=== PATIENT | female | born 1955 | race Caucasian/White ===

== ENCOUNTER 2017-01-11 23:45 | Inpatient (IN) ==
--- NOTE | 2017-01-12 00:34 | Hospitalist History & Physical ---
History of Present Illness Chief complaint: suspected intentional drug overdose and acute respiratory failure History of present illness: Ms. Almonte is a 61 year old female who was transferred from [facility] for suspected drug overdose and respiratory compromise requiring intubation with mechanical ventilation. Currently, patient is intubated and sedated. No family member is present. According to EMS personnel and the notes, on yesterday, patient was talking to her family about committing suicide. Later on yesterday, she went to a [employer] restaurant and consumed two margaritas. It was reported that she had a fight with her sister, and the patient took some pills. The amount of pills are unknown. It is also unknown what pills she did take. She had bottles of ambien/ Mirapex/Zoloft. She is prescribed ambien 10mg qhs, mirapex 0.25mg qhs, and zoloft 25mg daily. After patient ingested the pills, the daughter called EMS and according to EMS personnel, patient had slurred speech and kept falling asleep. Her o2 saturation at that time was 90%. She told EMS that she was not trying to hurt herself but if she didnt wake up that would be fine. When she was taken to the ER, she became more hypoxic with o2 sats in the 50s, and she developed shallow breathing with slow breaths. She was intubated in the ER. She was placed on a versed drip. While in route to [place], patient woke up, and she was given 100mcg of fentanyl. Her blood pressure dropped to the 70s. Currently, bp is 97/57. Allergies Allergy/AdvReac Type Severity Reaction Status Date / Time No Known Allergies Allergy Verified 01/12/17 00:33 Medical,Surgical,& Family Hx - Medical History Psychological: History of: Anxiety Disorders, Depression Neurology: History of: Neurological Problems (restless leg syndrome) - Surgical History Abdominal Surgeries: Surgical HX of: Appendectomy - Family History Family History: Reports;: Additional Family History (unknown; patient is intubated and sedated; no family member is present) - Social History Smoking Status: Current every day smoker (2ppd, unknown duration) Frequency of Alcohol Use: Unknown (it was reported that patient had consumed two margaritas) Lives With:: Spouse ROS unobtainable: due to endotracheal tube Exam - Constitutional Vitals: 97/57, 14, 64, 97.1, 96%, vent settings: AC, Tv: 600, rate: 12, FIo2: 50%, PEEP : 5 General appearance: no acute distress (intubated and sedated) - Head Head exam: Present: normal inspection, normocephalic, atraumatic - Eye Eye exam: Absent: conjunctival injection, periorbital swelling, scleral icterus Pupils: Present: RUBY - ENT ENT exam: Present: other (+ET tube) - Neck Neck exam: Present: normal inspection - Respiratory Respiratory exam: Present: prolonged expiratory phase, wheezes, other ( bilateral air movement; no increased work of breathing). Absent: rales ( bilateral breath sounds; no increased work of breathing), rhonchi - Cardiovascular Cardiovascular exam: Present: regular rate and rhythm - GI/Abdominal GI/Abdominal exam: Present: normal bowel sounds, soft. Absent: distended, tenderness - Extremities Exam Extremities exam: Present: normal inspection. Absent: edema - Neurological Exam Neurological exam: Present: other (sedated) - Skin Skin exam: Present: normal color, warm Results - EKG EKG results: sinus rhythm - Impressions Labs from outside facility: 14.1 9.0> <223 40.6 147 108 7 <103 3.7 29 0.8 ABG: ph: 7.36, Paco2: 40, paO2: 238, HCO3: 22, base excess:-3.1; O2 saturation : 98% EKG: NSR with QTc: 485 tylenol level: 23, ETOH level 5, UDS: positive for opiates This is a 61 yo female who was transferred from [facility] to [place] for suspected intentional drug overdose. 1. Suspected intentional drug overdose 2. Suspected suicide attempt 3. Acute respiratory failure requiring intubation with mechanical ventilation 4. Prolonged Qtc, EKG from outside hospital showed NSR with QTc: 485. It is likely due to the Zoloft. Other thoughts include cardiac ischemia or electrolyte imbalances. 5. Recent ETOH use 6. Hypotension, likely from fentanyl but will need to evaluate for possible sepsis 7. DVT and GI prophalaxis 8. Comorbid conditions: history of anxiety, depression, tobacco use Plan: IVFs, cardiac enzymes, basic labs, cxray, EKG now and in am; monitor QTc ; obtain ABG and adjust vent settings accordingly; consult pulmonary for vent management; add bronchodilator therapy; likely will need psychiatry consult; check lactic acid; monitor for signs/symptoms of acute withdrawal; add thiamine/ folic acid/PPI/lovenox. The plan of care may be modified as more information becomes available.
[2017-01-12] MEDS ORDERED: SODIUM CHLORIDE 0.9% 1,000 ML IV ONE ×2 (00:36→03:41)
[2017-01-12 00:59] LABS: Allen Test Positive; Pt O2 Delivery Device Ventilator
[2017-01-12 01:00] LABS: ABG Base Excess -0.8 MMOL/L (-2.5-2.5); ABG HCO3 26.6 MMOL/L (20-26); ABG Oxygen Saturation 94.2 % (95-100); ABG PCO2 55.8 MM HG (35-48); ABG PH 7.296 (7.35-7.45); ABG PO2 77.5 MM HG (80-95); ABG TCO2 28.3 MMOL/L (23-27)
[2017-01-12] MEDS: PROPOFOL 1,000 MG/100 ML BOTTLE IV SCH ×2 (01:15→20:34)
[2017-01-12] MEDS ORDERED: ALBUTEROL 2.5 MG/3 ML NEB RESP TX PRN (01:46)
[2017-01-12 02:09] LABS: Osmolality,Calculated 284.8 MOS/KG (273-304); Potassium 3.7 MMOL/L (3.5-5.1)
[2017-01-12] MEDS: SODIUM CHLORIDE 0.9% 1,000 ML IV SCH ×4 (02:10→16:37)
[2017-01-12 02:12] LABS: Lactic Acid 1.4 MMOL/L (0.4-2.0)
[2017-01-12 02:21] LABS: ABG Oxygen Saturation 95.5 % (95-100); ABG PCO2 47.7 MM HG (35-48); ABG PH 7.355 (7.35-7.45); ABG PO2 81.1 MM HG (80-95); ABG TCO2 27.5 MMOL/L (23-27); Allen Test Positive; Pt O2 Delivery Device Ventilator
[2017-01-12 02:25] LABS: Alanine Aminotransferase 40 U/L (13-56); Albumin 3.2 G/DL (3.4-5.0); Alkaline Phosphatase 103 U/L (45-117); Aspartate Amino Transferase 34 U/L (0-37); Blood Urea Nitrogen 8 MG/DL (7-18); Calcium 8.3 MG/DL (8.5-10.1); Free T4 (Free Thyroxine) 0.87 NG/DL (0.76-1.46); Glucose 103 MG/DL (74-106); Osmolality,Calculated 283.8 MOS/KG (273-304); Potassium 3.7 MMOL/L (3.5-5.1); Sodium 144 MMOL/L (136-145); Total Protein 5.7 G/DL (6.4-8.3); Troponin I Only < 0.015 NG/ML (0.00-0.045)
--- NOTE | 2017-01-12 02:26 | EKG Report ---
Stationary ECG Study [facility] Test Date: 01/12/2017 12:38:14 AM Pat Name: ANA SAGASTUME Department: Room: 129 Gender: F Water Truck Driver: KANU : 1955 Requested by: Sean Cotton Order Number: [id number] Reading MD: SULLY MARTINES Intervals [place] Rate: 63 P: 73 ND: 170 QRS: 60 QRSD: 102 T: 61 QT: 473 QTc: 480 Interpretive Statements SINUS RHYTHM INCOMPLETE RIGHT BUNDLE BRANCH BLOCK MODERATE T-WAVE ABNORMALITY, CONSIDER ANTERIOR ISCHEMIA Electronically Signed On 01-12-17 16:38:45 CDT by SULLY MARTINES [email or web address]
[2017-01-12 02:28] LABS: Basophils % 0.5 % (0.0-0.8); Eosinophils # 0.1 10*3/uL (0.0-0.87); Eosinophils % 1.4 % (0.00-10.9); Eosinophils % 1.5 % (0.00-10.9); Hematocrit 37.4 VOL% (35.7-47.0); Hemoglobin 12.9 GM/DL (12.0-16.0); Hemoglobin 13.1 GM/DL (12.0-16.0); Immature Granulocytes % 0.6 %; Immature Granulocytes Absolute 0.05 #; Lymphocytes # 2.4 10*3/uL (1.4-4.0); Lymphocytes % 28.1 % (21.3-54.2); Lymphocytes % 28.5 % (21.3-54.2); Mean Corpuscular HGB Conc 34.5 GM/DL (32-36); Mean Corpuscular Hemoglobin 31 PG (27-34); Mean Platelet Volume 10.5 FL (9.6-12.0); Mean Platelet Volume 10.8 FL (9.6-12.0); Monocytes # 0.5 10*3/uL (0.11-0.8); Monocytes # 0.6 10*3/uL (0.11-0.8); Monocytes % 6.3 % (1.7-12.7); Monocytes % 6.9 % (1.7-12.7); Neutrophils # 5.3 10*3/uL (1.4-7.4); Neutrophils # 5.4 10*3/uL (1.4-7.4); Neutrophils % 63.1 % (38.7-73.9); Platelet Count 206 T/CUMM (130-400); Platelet Count 212 T/CUMM (130-400); Red Cell Distribution Width 12.6 % (9.3-17.3); White Blood Count 8.5 T/CUMM (4-12)
[2017-01-12] MEDS: ALBUTEROL 2.5 MG/3 ML NEB RESP TX SCH ×5 (02:51→20:29)
--- NOTE | 2017-01-12 07:42 | XRay Report ---
Exam: XR chest 1V portable Date: 01/12/2017 12:36 AM Indication: Shortness of breath follow-up ventilator nasogastric tube placement Comparison: 02/18/2010 Findings:: Endotracheal tube is present at the level aortic knob. Nasogastric tube is present with the distal tip in the fundus of the stomach. The heart is normal in size. Minimal atelectatic change in the basilar regions. Small effusion left base No pneumothorax. External cardiac leads are present. Mediastinum is otherwise intact. Impression: 1. Endotracheal tube and nasogastric tube in good position. 2. Left basilar atelectatic change and tiny effusion PROCEDURE INTERPRETED AT [facility] DEPARTMENT OF RADIOLOGY Final Report Signed by: Dr. Macho Sadler
--- NOTE | 2017-01-12 07:53 | EKG Report ---
Stationary ECG Study [facility] Test Date: 01/12/2017 7:53:48 AM Pat Name: ANA SAGASTUME Department: Room: 129 Gender: F Retail Route Supervisor: : 1955 Requested by: Sean Cotton Order Number: [id number] Reading MD: SULLY MARTINES Intervals [place] Rate: 60 P: 64 PA: 167 QRS: 55 QRSD: 104 T: 59 QT: 476 QTc: 477 Interpretive Statements SINUS RHYTHM INCOMPLETE RIGHT BUNDLE BRANCH BLOCK ST DEVIATION AND MODERATE T-WAVE ABNORMALITY, CONSIDER ANTERIOR ISCHEMIA Electronically Signed On 01-12-17 17:05:06 CDT by SULLY MARTINES [email or web address]
[2017-01-12] MEDS ORDERED: FOLIC ACID 5 MG/1 ML VIAL IV SCH (09:00)
[2017-01-12] MEDS: THIAMINE 200 MG/2 ML VIAL IV SCH (09:34)
[2017-01-12] MEDS: PANTOPRAZOLE 40 MG VIAL IV SCH (09:34)
[2017-01-12] MEDS: ENOXAPARIN 40 MG/0.4 ML SYRINGE SUBCUT SCH (09:35)
[2017-01-12 09:40] LABS: Troponin I Only < 0.015 NG/ML (0.00-0.045)
--- NOTE | 2017-01-12 10:44 | Pulmonology Consult Note ---
History of Present Illness Chief complaint: Mechanical ventilation. Medicine overdose. History of present illness: Ms. 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 Patient also has hypoxemia. This patient had an intentional overdose or overdose gesture. Please see admit note for additional detail. She was transferred here from [facility] emergency room she was intubated on arrival here Patient slightly sedated. She is recently been writing notes to the nurse but she refused to wake up when I came in the room. No one is aware of any evidence of vomiting or aspiration Remainder review of systems is therefore negative. Allergies. None. Home medicines. See below Hospital medicines. See below Past history. I saw this patient after surgery in 2009. She was hypoxic at that time. On FiO2 she had a PO2 of 78. There is a history of anxiety disorders and depression. Social history. 2 pack per day smoker for unknown known number of years. Patient works for [employer]. Family history. None available. Chest x-ray. My interpretation. Slight increase in interstitial markings in the right base. Small left pleural effusion. 7 possible to rule out an associated infiltrate. Lung randolph are otherwise clear with no masses infiltrates or pulmonary edema. No pneumothorax. Endotracheal tube in good position. ABGs on mechanical ventilation FiO2 of 60% shows a pH 7.355. PCO2 47.7. PO2 of 81.1 and a bicarb of 26 Lab. White count is 8500 with 63 segs 28 lymphs and 6 monocytes. H&H is 13.1/ 37.4 with normal indices and normal red blood cell distribution with. Platelets are 206,000 with normal MPV. Electrolytes are normal. Creatinine is 0.70 with a BUN of 10. Glucoses are normal. Lactic acid is 1.4. Calcium is low at 8.0 liver function tests are normal. Total protein and albumin are low at 5.73.2 respectively. Globulins are normal. TSH is slightly elevated at 5.640. Free T4 is in low normal range is 0.87. Toxicology. I will sign a drug screen was positive for opiates Physical exam. Vital signs. See below. Afebrile. Neurologic. Patient will not open her eyes. Recently she has been riding on a note pad to the nurse so there may be some psychological overlay. Other exams have shown the cranial nerves to be intact and the patient moves all fours. Face. Symmetrical. No edema of the lips or tongue. Neck. Symmetrical. No mass. No meningismus. Thyroid was not palpated Lymphatics no submandibular cervical supraclavicular or epitrochlear adenopathy Chest clear no large airway congestion. Heart. No gallop Abdomen. Nondistended. Rare bowel sounds. Extremities. No edema no evidence of deep venous thrombophlebitis Musculoskeletal no gross abnormalities of the cervical thoracic and lumbar spine Skin. Face and hands show no cancerous infectious lesions no other areas were examined Arterial. Carotid pulses normal upper extremity pulses palpable lower extremity pulses are nonpalpable. Venous exam of the neck upper and lower extremities are normal The remainder the physical exam is negative. Impression. 1. Intentional overdose of opioids. 2. Acute respiratory failure related to #1 3. Small left pleural effusion and slight increase right lower lung markings. Suspect a mild degree of aspiration. 4. Hypoxemia. Note that this was present when the patient was on a ventilator in 2009. 5. Tobacco abuse. Reportedly 2 packs of cigarettes per day. Most likely has underlying COPD. 6. Elevated TSH with normal free T4. 7. See past history Plan. 1. Weaning protocol. 2. Sputum for Gram stain culture and sensitivity 3. IV Levaquin 4. IV Cleocin 5. Daily chest x-rays and ABGs. 6. Physical therapy protocol while on mechanical ventilation. 7. Proton pump inhibitor protocol 8. Deep venous thrombophlebitis prevention protocol 9. See orders Allergies Allergy/AdvReac Type Severity Reaction Status Date / Time No Known Allergies Allergy Verified 01/12/17 00:33 Exam (Pulmonay) H&P - Constitutional Vitals: Period Temp Pulse Resp BP Sys/Lau Pulse Ox Last 24 Hr 96.3 F-97.3 F 54-74 12-21 87-149/56-96 92-99 Medical,Surgical,& Family Hx - Medical History Psychological: History of: Anxiety Disorders, Depression Neurology: History of: TIA, Neurological Problems (restless leg syndrome) HEENT: History of: Dental Problems (dentures) - Surgical History Abdominal Surgeries: Surgical HX of: Appendectomy - Family History Family History: Reports;: Family Cancer, Family Hypertension, Additional Family History (unknown; patient is intubated and sedated; no family member is present) Denies;: Family Diabetes, Family Heart Disease, Family Hematology, Family Psychiatric Problems, Family Stroke - Social History Smoking Status: Current every day smoker (2ppd, unknown duration) Frequency of Alcohol Use: Unknown (it was reported that patient had consumed two margaritas) Results - Labs CBC & BMP: 01/12/17 01:43 01/12/17 01:43
[2017-01-12 10:46] LABS: ABG Base Excess -3.3 MMOL/L (-2.5-2.5); ABG HCO3 21.5 MMOL/L (20-26); ABG Oxygen Saturation 89.4 % (95-100); ABG PCO2 67.1 MM HG (35-48); ABG PO2 66.1 MM HG (80-95)
[2017-01-12] MEDS: FOLIC ACID INJ 1 MG in SODIUM CHLORIDE 0.9% 50 ML IV SCH (13:01)
[2017-01-12] MEDS: LEVOFLOXACIN INJ 500 MG in PREMIX 1 EACH IV SCH (14:18)
[2017-01-12] MEDS: CLINDAMYCIN INJ 300 MG in PREMIX 1 EACH IV SCH ×2 (14:18→20:28)
--- NOTE | 2017-01-12 14:20 | Hospitalist Progress Note ---
Assessment and Plan (1) Depression with suicidal ideation Status: Acute Assessment and plan: Attempted overdose with Ambien, other medications Current Visit: Yes (2) Respiratory failure Status: Resolved Assessment and plan: Patient required intubation for airway protection after overdose. Now improved. Plan for extubation. Pulmonary consult appreciated. Current Visit: Yes Qualifiers: Chronicity: acute Respiratory failure complication: hypoxia Qualified Code(s): J96.01 - Acute respiratory failure with hypoxia Hospitalist: Subjective Interval history: Patient seen and examined. No acute events overnight. Case discussed with nursing staff. Labs reviewed. The dipper Van is off, the patient will be extubated shortly. History and physical reviewed. Exam - Constitutional Vitals: Period Temp Pulse Resp BP Sys/Lau Pulse Ox Last 24 Hr 96.3 F-97.3 F 54-77 12-21 87-149/56-96 91-99 Exam: Constitutional System: Mild distress. No tremulousness. Remains intubated with sedation off. In preparation for extubation. Head: Normocephalic, atraumatic. Ears, Nose and Throat System: No pain or tenderness. No epistaxis or discharge Eyes System: Pupils equal, round, and reactive. Extraocular muscles intact. Neck: Supple, without adenopathy, No jugular venous distention. No thyromegaly, neck mass, or prior surgery apparent. Respiratory System: Chest clear to auscultation. Cardiovascular System: Heart with regular rate and rhythm. No murmur. GI System: Abdomen soft, nontender. Normo active bowel sounds present. Musculoskeletal System: limbs with no pedal edema. Full distal pulses. Neurological System: No discernable sensory deficit. Moves all extremities. Follows commands. Psychiatric System: Unable to assess secondary to intubation. Results - Labs CBC & BMP: 01/12/17 01:43 01/12/17 01:43 Lab Results: I have reviewed the past 24 hour labs - Diagnostic Findings Procedure: Chest x-ray: image reviewed by me, report reviewed by me
[2017-01-12 14:46] LABS: Troponin I Only < 0.015 NG/ML (0.00-0.045)
[2017-01-12] MEDS ORDERED: DEXTROSE 50% 25 GM/50 ML VIAL IV PRN (16:21)
[2017-01-12] MEDS ORDERED: GLUCAGON 1 MG VIAL IM PRN (16:21)
--- NOTE | 2017-01-12 16:34 | Event Note ---
In hospital diagnostic and therapeutic fiberoptic bronchoscopy. Bilateral bronchoalveolar lavages were sent for fungal stains and cultures, Gram stain and bacterial cultures and sensitivities. This is a 61-year-old white female who overdosed on opiates. She required intubation mechanical ventilation. It was thought that she did not aspirate. Her chest x-ray showed a small left pleural effusion or possible associated infiltrate or atelectasis. There are increased interstitial markings at the base of the right lung. Today the patient began to cough and she mobilize a tremendous amount of thick tenacious greenish appearing material. She was suctioned until clear. It was decided to evaluate her additionally with fiberoptic bronchoscopy. The endotracheal tube was about a half an inch above the sandi. The distal trachea appeared normal and the sandi was sharp. The left mainstem bronchus left upper lung and left lower lung contain copious thick tenacious secretions that were mainly like those seen in COPD. There was however erosive slightly friable nonstenotic bronchitis in the left lower lung that had the appearance of an aspiration injury. No food content was seen. The large and small airways had a mild to moderate amount of collapsibility secondary to underlying COPD. I did not see any endobronchial lesions that had the appearance of cancer The left mainstem bronchus right upper lung bronchus intermedius right middle lung and right lower lung contain a lot of thick tenacious secretions similar to what is usually seen in COPD. There was slight friability of the right lower lung bronchi. I did not see any definite gastric contents. There were no lesions to suggest cancer. These areas were lavaged until clear. Specimens from the right and the left for sent for the studies named above. These specimens obtained multiple small bronchial plugs appear patient tolerated procedure well and there were no complications per Impression. 1. Retained secretions. 2. Ineffective cough 3. Small left pleural effusion with associated atelectasis versus infiltrate 4. Increased markings with small amount of associated atelectasis right lower lung. 5. Definite mild to moderate aspiration injury left lower lung. Possible very mild aspiration injury in the right lower lung. Plan. 1. Follow-up chest x-ray 2. Check bronchoscopy
[2017-01-12] MEDS: INSULIN REGULAR 100 UNIT/ML SUBCUT SCH (17:53)
[2017-01-12] MEDS: NICOTINE 21 MG/24 HR PATCH TRANSDERM SCH (22:41)
[2017-01-13] MEDS: INSULIN REGULAR 100 UNIT/ML SUBCUT SCH ×4 (00:22→18:19)
[2017-01-13] MEDS: ALBUTEROL 2.5 MG/3 ML NEB RESP TX SCH ×7 (00:29→23:20)
[2017-01-13] MEDS: SODIUM CHLORIDE 0.9% 1,000 ML IV SCH (00:43)
[2017-01-13] MEDS: PROPOFOL 1,000 MG/100 ML BOTTLE IV SCH ×2 (02:10→06:23)
[2017-01-13 03:47] LABS: ABG Base Excess 0.2 MMOL/L (-2.5-2.5); ABG HCO3 25.9 MMOL/L (20-26); ABG Oxygen Saturation 96.9 % (95-100); ABG PCO2 46.5 MM HG (35-48); ABG PH 7.364 (7.35-7.45); ABG PO2 94.6 MM HG (80-95); ABG TCO2 27.3 MMOL/L (23-27); Allen Test Positive; Pt O2 Delivery Device Ventilator
--- NOTE | 2017-01-13 05:10 | Pulmonology Progress Note ---
Pulmonary - PN: Subj Interval history: This 61-year-old white female is on mechanical ventilation after an overdose of opiates. She is progressing with CPAP trials. At the present time she is sedated. Has not tolerated T-tube as yet. He does have a history of smoking. Exam (Progress Note) - Constitutional Vitals: Period Temp Pulse Resp BP Sys/Lau Pulse Ox Last 24 Hr 97.3 F-99.0 F 56-81 12-22 93-149/58-96 91-100 Exam: Patient is sedated. Vital signs normal. Pupils react to light. Orotracheal tube in place. Neck is supple. Chest equal breath sounds few rhonchi on the left. Heart normal rate rhythm no murmurs. Abdomen soft, no masses. Extremities no clubbing cyanosis edema. Results - Labs CBC & BMP: 01/12/17 01:43 01/12/17 01:43 Lab Results: I have reviewed the past 24 hour labs - Diagnostic Findings Procedure: Chest x-ray: image reviewed by me (Patchy infiltrate left base probable small left pleural effusion) Assessment and Plan (1) Overdose opiate Status: Acute Assessment and plan: Continuing ventilation. Hold sedation and proceed with CPAP. Current Visit: Yes (2) Respiratory failure Status: Resolved Assessment and plan: ABGs look okay. Continuing weaning trials. Hopefully can extubate if mental status is good. Current Visit: Yes Qualifiers: Chronicity: acute Respiratory failure complication: hypoxia Qualified Code(s): J96.01 - Acute respiratory failure with hypoxia
[2017-01-13] MEDS: CLINDAMYCIN INJ 300 MG in PREMIX 1 EACH IV SCH ×3 (05:50→20:52)
[2017-01-13 05:57] LABS: Phosphorous 2.4 MG/DL (2.5-4.9); Prealbumin 12.9 MG/DL (20-40)
--- NOTE | 2017-01-13 08:43 | XRay Report ---
XR chest 1V portable Indication: Overdose. Hypoxemia. Chest one view: Comparison yesterday shows increased reticular prominence of the lungs with worsening patchy obscuration of the left lung base. Borderline cardiomegaly, NG tube are stable. Endotracheal tube has been advanced slightly now within 1 cm the sandi. Consider withdrawing slightly. Impression: Consider withdrawing endotracheal tube slightly. It remains in the trachea but just above the sandi. Worsening left basilar pneumonia and increased interstitial edema of the lungs. PROCEDURE INTERPRETED AT [facility] DEPARTMENT OF RADIOLOGY Final Report Signed by: Wu Shaikh M.D.
[2017-01-13] MEDS: PANTOPRAZOLE 40 MG VIAL IV SCH (09:09)
[2017-01-13] MEDS: THIAMINE 200 MG/2 ML VIAL IV SCH (09:11)
[2017-01-13] MEDS: ENOXAPARIN 40 MG/0.4 ML SYRINGE SUBCUT SCH (09:13)
[2017-01-13] MEDS: NICOTINE 21 MG/24 HR PATCH TRANSDERM SCH (09:15)
[2017-01-13] MEDS: FOLIC ACID INJ 1 MG in SODIUM CHLORIDE 0.9% 50 ML IV SCH (10:52)
[2017-01-13] MEDS: LEVOFLOXACIN INJ 500 MG in PREMIX 1 EACH IV SCH (10:58)
--- NOTE | 2017-01-13 11:20 | Hospitalist Progress Note ---
Assessment and Plan (1) Depression with suicidal ideation Status: Acute Assessment and plan: Attempted overdose with Ambien, other medications Current Visit: Yes (2) Respiratory failure Status: Resolved Assessment and plan: Patient required intubation for airway protection after overdose. Now improved. Plan for extubation. Pulmonary consult appreciated. Current Visit: Yes Qualifiers: Chronicity: acute Respiratory failure complication: hypoxia Qualified Code(s): J96.01 - Acute respiratory failure with hypoxia (3) Left lower lobe pneumonia Status: Acute Assessment and plan: Continue Levaquin. Current Visit: Yes Hospitalist: Subjective Interval history: Patient seen and examined. No acute events overnight. Case discussed with nursing staff. Labs reviewed. Patient failed weaning attempt yesterday. She is on CPAP trials now. Tolerating tube feeds. Chest x-ray shows left lower lobe pneumonia with evidence of some pulmonary edema and fluid overload. IV fluids have been discontinued and Lasix has been ordered. Exam - Constitutional Vitals: Period Temp Pulse Resp BP Sys/Lau Pulse Ox Last 24 Hr 97 F-99.0 F 60-81 12-22 87-143/41-85 93-100 Exam: Constitutional System: No distress. No tremulousness. Remains intubated with sedation off. In preparation for extubation. Head: Normocephalic, atraumatic. Ears, Nose and Throat System: No pain or tenderness. No epistaxis or discharge Eyes System: Pupils equal, round, and reactive. Extraocular muscles intact. Neck: Supple, without adenopathy, No jugular venous distention. No thyromegaly, neck mass, or prior surgery apparent. Respiratory System: Chest clear to auscultation. Decreased breath sounds left base. Cardiovascular System: Heart with regular rate and rhythm. No murmur. GI System: Abdomen soft, nontender. Normo active bowel sounds present. Musculoskeletal System: limbs with no pedal edema. Full distal pulses. Neurological System: No discernable sensory deficit. Moves all extremities. Follows commands. Psychiatric System: Unable to assess secondary to intubation. Results - Labs CBC & BMP: 01/12/17 01:43 01/12/17 01:43 Lab Results: I have reviewed the past 24 hour labs
[2017-01-13] MEDS ORDERED: FUROSEMIDE 20 MG/2 ML VIAL IV SCH (11:30)
[2017-01-13 11:34] LABS: Basophils % 0.2 % (0.0-0.8); Eosinophils % 0.5 % (0.00-10.9); Hematocrit 33.4 VOL% (35.7-47.0); Hemoglobin 11.8 GM/DL (12.0-16.0); Immature Granulocytes % 0.5 %; Immature Granulocytes Absolute 0.04 #; Lymphocytes # 1.3 10*3/uL (1.4-4.0); Lymphocytes % 16.2 % (21.3-54.2); Mean Corpuscular HGB Conc 35.3 GM/DL (32-36); Mean Corpuscular Hemoglobin 32 PG (27-34); Mean Corpuscular Volume 89.3 FL (87-102); Mean Platelet Volume 10.2 FL (9.6-12.0); Monocytes # 0.5 10*3/uL (0.11-0.8); Monocytes % 6.1 % (1.7-12.7); Neutrophils # 6.2 10*3/uL (1.4-7.4); Neutrophils % 76.5 % (38.7-73.9); Platelet Count 143 T/CUMM (130-400); Red Blood Count 3.74 MC/CUMM (3.8-5.5); Red Cell Distribution Width 12.3 % (9.3-17.3); White Blood Count 8.1 T/CUMM (4-12)
[2017-01-13 11:54] LABS: ABG Base Excess 1.2 MMOL/L (-2.5-2.5); ABG HCO3 25.5 MMOL/L (20-26); ABG Oxygen Saturation 95.1 % (95-100); ABG PCO2 45.2 MM HG (35-48); ABG PO2 74.3 MM HG (80-95); ABG TCO2 23.9 MMOL/L (23-27)
[2017-01-13 12:08] LABS: Albumin 2.9 G/DL (3.4-5.0); Bilirubin,Total 0.5 MG/DL (0.2-1.0); Calcium 8.2 MG/DL (8.5-10.1); Osmolality,Calculated 282.1 MOS/KG (273-304); Potassium 3.7 MMOL/L (3.5-5.1); Total Protein 5.3 G/DL (6.4-8.3)
[2017-01-13 14:57] LABS: ABG Base Excess 2.9 MMOL/L (-2.5-2.5); ABG HCO3 28.5 MMOL/L (20-26); ABG PCO2 47.6 MM HG (35-48); ABG PH 7.395 (7.35-7.45); ABG PO2 67.9 MM HG (80-95)
[2017-01-13] MEDS: ACETAMINOPHEN 325 MG TABLET PO PRN ×2 (15:10→20:52)
[2017-01-13] MEDS ORDERED: ONDANSETRON 4 MG/2 ML VIAL IV ONE (15:17)
[2017-01-13] MEDS ORDERED: ONDANSETRON 4 MG/2 ML VIAL IV PRN (15:17)
[2017-01-13] MEDS ORDERED: PHENOL 1.4% THROAT SPRAY 177 ML BOTTLE PO PRN (15:38)
[2017-01-13] MEDS ORDERED: PROMETHAZINE 25 MG/1 ML VIAL IM PRN (21:04)
[2017-01-14] MEDS: INSULIN REGULAR 100 UNIT/ML SUBCUT SCH ×5 (02:24→23:29)
[2017-01-14] MEDS: ALBUTEROL 2.5 MG/3 ML NEB RESP TX SCH ×5 (03:20→20:19)
[2017-01-14 03:40] LABS: Allen Test Positive; Pt O2 Delivery Device Venturi Mask
[2017-01-14 03:41] LABS: ABG Base Excess 1.7 MMOL/L (-2.5-2.5); ABG HCO3 25.9 MMOL/L (20-26); ABG PCO2 63.8 MM HG (35-48); ABG PH 7.283 (7.35-7.45); ABG PO2 84.9 MM HG (80-95); ABG TCO2 27.2 MMOL/L (23-27)
[2017-01-14 05:02] LABS: Basophils % 0.1 % (0.0-0.8); Hematocrit 34.8 VOL% (35.7-47.0); Hemoglobin 12.1 GM/DL (12.0-16.0); Immature Granulocytes Absolute 0.09 #; Lymphocytes % 10.5 % (21.3-54.2); Mean Corpuscular HGB Conc 34.8 GM/DL (32-36); Mean Corpuscular Hemoglobin 31 PG (27-34); Mean Corpuscular Volume 88.8 FL (87-102); Mean Platelet Volume 11.1 FL (9.6-12.0); Monocytes # 0.5 10*3/uL (0.11-0.8); Monocytes % 5.8 % (1.7-12.7); Neutrophils # 7.5 10*3/uL (1.4-7.4); Neutrophils % 82.6 % (38.7-73.9); Platelet Count 156 T/CUMM (130-400); Red Blood Count 3.92 MC/CUMM (3.8-5.5); Red Cell Distribution Width 12.1 % (9.3-17.3); White Blood Count 9.1 T/CUMM (4-12)
[2017-01-14] MEDS: CLINDAMYCIN INJ 300 MG in PREMIX 1 EACH IV SCH ×3 (05:02→20:26)
[2017-01-14 05:37] LABS: Albumin 3.1 G/DL (3.4-5.0); Bilirubin,Total 0.8 MG/DL (0.2-1.0); Magnesium 2.1 MG/DL (1.8-2.4); Osmolality,Calculated 277.4 MOS/KG (273-304); Total Protein 5.8 G/DL (6.4-8.3)
--- NOTE | 2017-01-14 07:58 | Pulmonology Progress Note ---
Pulmonary - PN: Subj Interval history: This 61-year-old white female is on mechanical ventilation after an overdose of opiates. She is progressing with CPAP trials. At the present time she is sedated. Has not tolerated T-tube as yet. He does have a history of smoking. 01/14/2017 patient was able to be extubated from the ventilator yesterday. Her chest x-ray looks a little bit wet this point. O2 sat is around 90%. She is a little drowsy and has an elevated PCO2 still not going to increase her oxygen. Will bump with Lasix. Need to keep watch in CCU for now. Exam (Progress Note) - Constitutional Vitals: Period Temp Pulse Resp BP Sys/Lau Pulse Ox Last 24 Hr 97.2 F-99.4 F 67-81 14-26 98-150/49-96 91-100 Exam: Patient is drowsy but arousable. Vital signs normal. Pupils react to light. Neck is supple. Chest equal breath sounds few rhonchi on both sides. Heart normal rate rhythm no murmurs. Abdomen soft, no masses. Extremities no clubbing cyanosis edema. Results - Labs CBC & BMP: 01/14/17 04:31 01/14/17 04:31 Lab Results: I have reviewed the past 24 hour labs - Diagnostic Findings Procedure: Chest x-ray: image reviewed by me (Increased interstitial markings right more than left.) Assessment and Plan (1) Overdose opiate Status: Acute Assessment and plan: Continuing ventilation. Hold sedation and proceed with CPAP. 01/14/2017 patient has been weaned from the ventilator. Current Visit: Yes (2) Respiratory failure Status: Resolved Assessment and plan: ABGs look okay. Continuing weaning trials. Hopefully can extubate if mental status is good. 01/14/2017 still has some hypoxemia and hypercarbia. Watch in CCU. May need to use BiPAP. Current Visit: Yes Qualifiers: Chronicity: acute Respiratory failure complication: hypoxia Qualified Code(s): J96.01 - Acute respiratory failure with hypoxia
[2017-01-14] MEDS: ENOXAPARIN 40 MG/0.4 ML SYRINGE SUBCUT SCH (08:48)
[2017-01-14] MEDS: NICOTINE 21 MG/24 HR PATCH TRANSDERM SCH (08:49)
[2017-01-14] MEDS: PANTOPRAZOLE 40 MG VIAL IV SCH (08:51)
[2017-01-14] MEDS: FUROSEMIDE 20 MG/2 ML VIAL IV SCH (08:51)
[2017-01-14] MEDS: THIAMINE 200 MG/2 ML VIAL IV SCH (08:53)
--- NOTE | 2017-01-14 09:40 | Hospitalist Progress Note ---
Assessment and Plan (1) Depression with suicidal ideation Status: Acute Assessment and plan: Attempted overdose with Ambien, other medications. Awaiting [facility] evaluation. One-to-one observation in CCU. Current Visit: Yes (2) Respiratory failure Status: Resolved Assessment and plan: Patient required intubation for airway protection after overdose. Now improved. Extubated yesterday. Maintaining airway without difficulty. This morning, is thought to have a component of pulmonary edema and is receiving diuretic therapy. Current Visit: Yes Qualifiers: Chronicity: acute Respiratory failure complication: hypoxia Qualified Code(s): J96.01 - Acute respiratory failure with hypoxia (3) Left lower lobe pneumonia Status: Acute Assessment and plan: Continue Levaquin and clindamycin. Current Visit: Yes Hospitalist: Subjective Interval history: Patient seen and examined. No acute events overnight. Case discussed with nursing staff. Labs reviewed. Pulmonary notes reviewed. Chest x-ray shows bilateral pulmonary edema. I agree with Lasix and have added 2 doses of Aldactone. Patient remains very sleepy this morning. She was difficult to arouse but followed commands. Exam - Constitutional Vitals: Period Temp Pulse Resp BP Sys/Lau Pulse Ox Last 24 Hr 97.2 F-99.4 F 67-81 14-26 98-150/49-96 91-100 Exam: Constitutional System: Mild distress. No tremulousness. Remains very sleepy. Head: Normocephalic, atraumatic. Ears, Nose and Throat System: No pain or tenderness. No epistaxis or discharge Eyes System: Pupils equal, round, and reactive. Extraocular muscles intact. Neck: Supple, without adenopathy, No jugular venous distention. No thyromegaly, neck mass, or prior surgery apparent. Respiratory System: Chest rales bilaterally to auscultation. Cardiovascular System: Heart with regular rate and rhythm. No murmur. GI System: Abdomen soft, nontender. Normo active bowel sounds present. Musculoskeletal System: limbs with no pedal edema. Full distal pulses. Neurological System: No discernable sensory deficit. No aphasia Psychiatric System: Unable to assess secondary to patient's sleepiness and lethargy. Results - Labs CBC & BMP: 01/14/17 04:31 01/14/17 04:31 Lab Results: I have reviewed the past 24 hour labs
--- NOTE | 2017-01-14 10:28 | XRay Report ---
Portable chest Date: 01/14/2017 Clinical history: Hypoxemia, overdose Comparison: 01/14/2017 Technique: Portable AP sitting chest Findings: The heart is minimally enlarged with interval removal of the endotracheal tube and nasogastric tube. Progressive diffuse parenchymal findings in the right lung. Significantly reduced parenchymal findings at the left lung base with smaller left pleural effusion. Stable mediastinum and osseous structures. Impression: Removal of the endotracheal tube and nasogastric tube. Progressive edema/infiltration in the right lung. Significantly reduced atelectasis/infiltration/edema at the left lung base with smaller left pleural effusion. PROCEDURE INTERPRETED AT [facility] DEPARTMENT OF RADIOLOGY Final Report Signed by: Dr. Carole Jack
[2017-01-14] MEDS: ACETAMINOPHEN 325 MG TABLET PO PRN ×2 (10:47→17:53)
[2017-01-14] MEDS: SPIRONOLACTONE 25 MG TABLET PO SCH ×2 (10:47→20:55)
[2017-01-14] MEDS: LEVOFLOXACIN INJ 500 MG in PREMIX 1 EACH IV SCH (11:08)
[2017-01-14] MEDS: FOLIC ACID INJ 1 MG in SODIUM CHLORIDE 0.9% 50 ML IV SCH (17:33)
[2017-01-15] MEDS: ALBUTEROL 2.5 MG/3 ML NEB RESP TX SCH ×6 (00:51→19:46)
[2017-01-15] MEDS: ACETAMINOPHEN 325 MG TABLET PO PRN (03:06)
[2017-01-15] MEDS: CLINDAMYCIN INJ 300 MG in PREMIX 1 EACH IV SCH ×3 (03:06→19:38)
[2017-01-15 04:01] LABS: ABG Base Excess 7.4 MMOL/L (-2.5-2.5); ABG HCO3 30.9 MMOL/L (20-26); ABG Oxygen Saturation 88.4 % (95-100); ABG PCO2 52.8 MM HG (35-48); ABG PH 7.412 (7.35-7.45); ABG PO2 52.6 MM HG (80-95); ABG TCO2 29.6 MMOL/L (23-27); Allen Test Positive; Pt O2 Delivery Device Room Air
[2017-01-15 05:54] LABS: Magnesium 2.1 MG/DL (1.8-2.4); Potassium 3.4 MMOL/L (3.5-5.1)
--- NOTE | 2017-01-15 08:06 | XRay Report ---
History is hypoxemia, overdose The heart is mildly enlarged There has been interval improvement of prior diffuse bilateral reticular and hazy pulmonary opacities. Mild reticular opacities remain bilaterally. There has been development of mildly more focal increasing linear and more confluent rounded opacity near the right costophrenic angle. Impression: 1. Mild improvement of prior diffuse pulmonary opacities 2. Mild worsening of more focal confluent consolidation in the lateral right lung base which follow-up until clear is necessary PROCEDURE INTERPRETED AT [facility] DEPARTMENT OF RADIOLOGY Final Report Signed by: Dr. Aleena Guillen
[2017-01-15] MEDS: NICOTINE 21 MG/24 HR PATCH TRANSDERM SCH (09:13)
[2017-01-15] MEDS: ENOXAPARIN 40 MG/0.4 ML SYRINGE SUBCUT SCH (09:14)
[2017-01-15] MEDS: FUROSEMIDE 20 MG/2 ML VIAL IV SCH (09:15)
[2017-01-15] MEDS: PANTOPRAZOLE 40 MG VIAL IV SCH (09:20)
[2017-01-15] MEDS: FOLIC ACID INJ 1 MG in SODIUM CHLORIDE 0.9% 50 ML IV SCH (09:23)
[2017-01-15 09:39] LABS: Allen Test Positive; Pt O2 Delivery Device Venturi Mask
[2017-01-15 09:40] LABS: ABG Base Excess 8.3 MMOL/L (-2.5-2.5); ABG HCO3 34.1 MMOL/L (20-26); ABG Oxygen Saturation 95.9 % (95-100); ABG PCO2 52.6 MM HG (35-48); ABG TCO2 35.7 MMOL/L (23-27)
[2017-01-15] MEDS ORDERED: POTASSIUM CHLORIDE 20 MEQ TABLET PO ONE (10:20)
--- NOTE | 2017-01-15 10:29 | Hospitalist Progress Note ---
Assessment and Plan (1) Depression with suicidal ideation Status: Acute Assessment and plan: Attempted overdose with Ambien, other medications. Awaiting [facility] evaluation. Okay to transfer to the floor today. Current Visit: Yes (2) Respiratory failure Status: Resolved Assessment and plan: Patient required intubation for airway protection after overdose. Now improved and has been extubated. Maintaining airway without difficulty. Current Visit: Yes Qualifiers: Chronicity: acute Respiratory failure complication: hypoxia Qualified Code(s): J96.01 - Acute respiratory failure with hypoxia (3) Left lower lobe pneumonia Status: Acute Assessment and plan: Continue Levaquin and clindamycin. Current Visit: Yes Hospitalist: Subjective Interval history: Patient seen and examined. No acute events overnight. Case discussed with nursing staff. Labs reviewed. Case discussed with the patient and her at the bedside. Discussed with Dr. Kang on rounds. Patient has underlying COPD from 1-1/2-2 pack a day smoking for the last 35 years. Exam - Constitutional Vitals: Period Temp Pulse Resp BP Sys/Lau Pulse Ox Last 24 Hr 97.8 F-99.1 F 69-88 11-26 94-133/45-75 88-100 Exam: Constitutional System: No distress. No tremulousness. Currently on 50% oxygen Via Ventimask. Patient was seen and examined with her at the bedside. Head: Normocephalic, atraumatic. Ears, Nose and Throat System: No pain or tenderness. No epistaxis or discharge Eyes System: Pupils equal, round, and reactive. Extraocular muscles intact. Neck: Supple, without adenopathy, No jugular venous distention. No thyromegaly, neck mass, or prior surgery apparent. Respiratory System: Chest clear bilaterally with a faint end expiratory wheeze bilateral. Cardiovascular System: Heart with regular rate and rhythm. No murmur. GI System: Abdomen soft, nontender. Normo active bowel sounds present. Musculoskeletal System: limbs with no pedal edema. Full distal pulses. Neurological System: No discernable sensory deficit. No aphasia Psychiatric System: Patient is pleasant and cooperative. No homicidal or suicidal thoughts. Results - Labs CBC & BMP: 01/14/17 04:31 01/15/17 05:12 Lab Results: I have reviewed the past 24 hour labs - Diagnostic Findings Procedure: Chest x-ray: image reviewed by me, report reviewed by me
--- NOTE | 2017-01-15 10:32 | Pulmonology Progress Note ---
Pulmonary - PN: Subj Interval history: This is a 61-year-old white female whom I saw in pulmonary consultation on 2016. My impressions were. 1. Intentional overdose of opioids. 2. Acute respiratory failure related to #1 3. Small left pleural effusion and slight increase right lower lung markings. Suspect a mild degree of aspiration. 4. Hypoxemia. Note that this was present when the patient was on a ventilator in 2009. 5. Tobacco abuse. Reportedly 2 packs of cigarettes per day. Most likely has underlying COPD. 6. Elevated TSH with normal free T4. 7. See past history 01/15/2017. This patient was extubated on 01/13/2017. Her fiberoptic bronchoscopy sputum is from 01/12/2017 are growing gram-positive cocci which is yet to be identified. Sensitivities are not available. ABGs on 40% oxygen showed pH 7.43, PCO2 52.6, PO2 of 81 and a bicarb of 34.1. Sodium is 143. Potassium 3.4. Creatinine 0.50 with a BUN of 11. Natruretic peptide is 262. Today's chest x-ray shows the previously noted pleural effusion has resolved. There is a residual infiltrate in the posterior lateral segment of the right lower lung Patient's was present today and I discussed the case with him. Patient' s nurse was present and Chris Zavala nurse practitioner was present. Physical exam. Vital signs. See below Psychiatric oriented 3 Neurologic. Cranial nerves are intact long track motor functions intact Face. Symmetrical. No edema of the lips or tongue. Neck. Symmetrical. No mass. No meningismus. Chest. Hyperinflated with prolonged expiration and slight large airway congestion Heart no gallop Abdomen. Nondistended. Bowel sounds are present Extremities. No edema no evidence of deep venous thrombophlebitis Lymphatics. No submandibular cervical supraclavicular or epitrochlear adenopathy The remainder the physical exam is negative Plan. 01/12/2017 1. Weaning protocol. 2. Sputum for Gram stain culture and sensitivity 3. IV Levaquin 4. IV Cleocin 5. Daily chest x-rays and ABGs. 6. Physical therapy protocol while on mechanical ventilation. 7. Proton pump inhibitor protocol 8. Deep venous thrombophlebitis prevention protocol 9. See orders 01/15/2017 1. Check sputum cultures 2. Continue present regimen including antibiotics. 3. From pulmonary standpoint this patient is safe to move to the floor. 4. This patient will have a tendency for CO2 retention. 5. Follow-up chest x-ray and ABGs in the morning Exam (Progress Note) - Constitutional Vitals: Period Temp Pulse Resp BP Sys/Lau Pulse Ox Last 24 Hr 97.8 F-99.1 F 69-88 11-26 94-133/45-75 88-100 Results - Labs CBC & BMP: 01/14/17 04:31 01/15/17 05:12
[2017-01-15] MEDS: LEVOFLOXACIN INJ 500 MG in PREMIX 1 EACH IV SCH (10:38)
[2017-01-16] MEDS: ALBUTEROL 2.5 MG/3 ML NEB RESP TX SCH ×6 (00:16→18:30)
[2017-01-16 02:32] LABS: ABG Base Excess 5.6 MMOL/L (-2.5-2.5); ABG HCO3 29.2 MMOL/L (20-26); ABG Oxygen Saturation 89.4 % (95-100); ABG PCO2 45.5 MM HG (35-48); ABG PH 7.437 (7.35-7.45); ABG PO2 53.7 MM HG (80-95); ABG TCO2 26.9 MMOL/L (23-27); Allen Test Positive
[2017-01-16] MEDS: CLINDAMYCIN INJ 300 MG in PREMIX 1 EACH IV SCH ×3 (03:36→21:03)
[2017-01-16] MEDS: ENOXAPARIN 40 MG/0.4 ML SYRINGE SUBCUT SCH (09:26)
[2017-01-16] MEDS: NICOTINE 21 MG/24 HR PATCH TRANSDERM SCH (09:26)
[2017-01-16] MEDS: LEVOFLOXACIN INJ 500 MG in PREMIX 1 EACH IV SCH (10:00)
--- NOTE | 2017-01-16 10:12 | Hospitalist Progress Note ---
Assessment and Plan (1) Left lower lobe pneumonia Status: Acute Assessment and plan: Continue Levaquin and clindamycin. Follow-up a.m. chest x-ray. Pulmonary following. Home soon. Continue to wean oxygen. Current Visit: Yes (2) Depression with suicidal ideation Status: Acute Assessment and plan: Attempted overdose with Ambien, other medications. Awaiting [facility] evaluation. Okay to transfer to the floor today. 01/16/17 no symptoms today. Current Visit: Yes (3) Respiratory failure Status: Resolved Assessment and plan: Patient required intubation for airway protection after overdose. Now improved and has been extubated. Maintaining airway without difficulty. Current Visit: Yes Qualifiers: Chronicity: acute Respiratory failure complication: hypoxia Qualified Code(s): J96.01 - Acute respiratory failure with hypoxia Hospitalist: Subjective Interval history: Patient seen and examined. No acute events overnight. Case discussed with nursing staff. Labs reviewed. The patient was transferred to the floor yesterday. She is maintaining her oxygen saturations on 4 L nasal cannula. She was weaned from 50% Ventimask yesterday. She is in good spirits and feels well. Chest x-ray from this morning is pending. Exam - Constitutional Vitals: Period Temp Pulse Resp BP Sys/Lau Pulse Ox Last 24 Hr 97.2 F-99.3 F 69-99 14-27 111-137/57-85 93-100 Exam: Constitutional System: No distress. No tremulousness. Currently on 50% oxygen Via Ventimask. Patient was seen and examined with her at the bedside. Head: Normocephalic, atraumatic. Ears, Nose and Throat System: No pain or tenderness. No epistaxis or discharge Eyes System: Pupils equal, round, and reactive. Extraocular muscles intact. Neck: Supple, without adenopathy, No jugular venous distention. No thyromegaly, neck mass, or prior surgery apparent. Respiratory System: Chest clear bilaterally. Cardiovascular System: Heart with regular rate and rhythm. No murmur. GI System: Abdomen soft, nontender. Normo active bowel sounds present. Musculoskeletal System: limbs with no pedal edema. Full distal pulses. Neurological System: No discernable sensory deficit. No aphasia Psychiatric System: Patient is pleasant and cooperative. No homicidal or suicidal thoughts. Results - Labs CBC & BMP: 01/14/17 04:31 01/15/17 05:12 Lab Results: I have reviewed the past 24 hour labs
--- NOTE | 2017-01-16 11:33 | Pulmonology Progress Note ---
Pulmonary - PN: Subj Interval history: This is a 61-year-old white female whom I saw in pulmonary consultation on 2016. My impressions were. 1. Intentional overdose of opioids. 2. Acute respiratory failure related to #1 3. Small left pleural effusion and slight increase right lower lung markings. Suspect a mild degree of aspiration. 4. Hypoxemia. Note that this was present when the patient was on a ventilator in 2009. 5. Tobacco abuse. Reportedly 2 packs of cigarettes per day. Most likely has underlying COPD. 6. Elevated TSH with normal free T4. 7. See past history 01/15/2017. This patient was extubated on 01/13/2017. Her fiberoptic bronchoscopy sputum is from 01/12/2017 are growing gram-positive cocci which is yet to be identified. Sensitivities are not available. ABGs on 40% oxygen showed pH 7.43, PCO2 52.6, PO2 of 81 and a bicarb of 34.1. Sodium is 143. Potassium 3.4. Creatinine 0.50 with a BUN of 11. Natruretic peptide is 262. Today's chest x-ray shows the previously noted pleural effusion has resolved. There is a residual infiltrate in the posterior lateral segment of the right lower lung Patient's was present today and I discussed the case with him. Patient' s nurse was present and Chris Zavala nurse practitioner was present. 02/16/2017. Today's chest x-ray shows some small bibasilar infiltrates. Bronchoscopy specimens which were submitted on 01/12/2017 are growing gram- positive cocci. ID and sensitivities are not yet available. ABGs on FiO2 of 44 % show pH 7.437, PCO2 45.5 PO2 of 53.7 a bicarb of 29.2. Natruretic peptide is 173. We will repeat chest x-ray tomorrow. The patient sitting in bed and breathing comfortably in her chest is clear with prolonged Physical exam. Vital signs. See below Psychiatric oriented 3 Neurologic. Cranial nerves are intact long track motor functions intact Face. Symmetrical. No edema of the lips or tongue. Neck. Symmetrical. No mass. No meningismus. Chest. Hyperinflated with prolonged expiration. No wheezes. No stridor. Heart no gallop Abdomen. Nondistended. Bowel sounds are present Extremities. No edema no evidence of deep venous thrombophlebitis Lymphatics. No submandibular cervical supraclavicular or epitrochlear adenopathy The remainder the physical exam is negative Plan. 01/12/2017 1. Weaning protocol. 2. Sputum for Gram stain culture and sensitivity 3. IV Levaquin 4. IV Cleocin 5. Daily chest x-rays and ABGs. 6. Physical therapy protocol while on mechanical ventilation. 7. Proton pump inhibitor protocol 8. Deep venous thrombophlebitis prevention protocol 9. See orders 01/15/2017 1. Check sputum cultures 2. Continue present regimen including antibiotics. 3. From pulmonary standpoint this patient is safe to move to the floor. 4. This patient will have a tendency for CO2 retention. 5. Follow-up chest x-ray and ABGs in the morning 01/16/2017. 1. Check sputum cultures from bronchoscopy on 01/12/2017 when ID and sensitivities become available 2. Follow-up chest x-ray tomorrow 3. See today's note above. Exam (Progress Note) - Constitutional Vitals: Period Temp Pulse Resp BP Sys/Lau Pulse Ox Last 24 Hr 97.2 F-99.3 F 69-99 14-27 111-137/57-80 93-100 Results - Labs CBC & BMP: 01/14/17 04:31 01/15/17 05:12
[2017-01-17] MEDS: ALBUTEROL 2.5 MG/3 ML NEB RESP TX SCH ×3 (00:07→07:15)
[2017-01-17] MEDS: CLINDAMYCIN INJ 300 MG in PREMIX 1 EACH IV SCH (04:32)
[2017-01-17 07:28] LABS: Basophils % 0.5 % (0.0-0.8); Eosinophils # 0.3 10*3/uL (0.0-0.87); Eosinophils % 3.3 % (0.00-10.9); Hematocrit 40.9 VOL% (35.7-47.0); Immature Granulocytes % 1.1 %; Immature Granulocytes Absolute 0.09 #; Lymphocytes # 1.8 10*3/uL (1.4-4.0); Lymphocytes % 22.3 % (21.3-54.2); Mean Corpuscular Hemoglobin 31 PG (27-34); Mean Corpuscular Volume 87.8 FL (87-102); Mean Platelet Volume 11.1 FL (9.6-12.0); Monocytes # 0.7 10*3/uL (0.11-0.8); Monocytes % 8.6 % (1.7-12.7); Neutrophils # 5.3 10*3/uL (1.4-7.4); Neutrophils % 64.2 % (38.7-73.9); Red Blood Count 4.66 MC/CUMM (3.8-5.5); Red Cell Distribution Width 12.4 % (9.3-17.3); White Blood Count 8.2 T/CUMM (4-12)
[2017-01-17 07:34] LABS: Hemoglobin 14.3 GM/DL (12.0-16.0); Platelet Count 227 T/CUMM (130-400)
[2017-01-17 07:58] LABS: Calcium 9.1 MG/DL (8.5-10.1); Magnesium 2.1 MG/DL (1.8-2.4); Potassium 4.2 MMOL/L (3.5-5.1)
--- NOTE | 2017-01-17 08:04 | XRay Report ---
Exam: XR chest 2V Indication: Aspiration, bibasilar infiltrates Comparison study: Prior chest radiograph 01/15/2017 Findings: Cardiac silhouette and mediastinal contours appear stable from prior. There is no focal consolidation, pneumothorax or pleural effusion identified. Minimal diffuse interstitial opacities may represent a degree of underlying scarring changes. The previously noted right basilar interstitial and airspace opacities are nearly resolved. Impression: Near complete interval resolution of right basilar opacities with minimal residual blunting of the costophrenic angle and patchy opacities noted. Lungs are otherwise predominantly clear with mild scarring changes suggested. PROCEDURE INTERPRETED AT [facility] DEPARTMENT OF RADIOLOGY Final Report Signed by: Foster Curry
[2017-01-17] MEDS: NICOTINE 21 MG/24 HR PATCH TRANSDERM SCH (09:13)
[2017-01-17] MEDS: ENOXAPARIN 40 MG/0.4 ML SYRINGE SUBCUT SCH (09:14)
--- NOTE | 2017-01-17 10:44 | Discharge Summary ---
Hospital Course - Hospital Course Hospital Course: 61-year-old white female presented to the emergency department and [facility] with impending respiratory failure secondary to intentional overdose on multiple medications. The patient was intubated for airway protection and admitted to our intensive care unit for further evaluation and treatment. She was found to have pneumonia and was treated with Levaquin and clindamycin. She did well during the course of hospitalization and was extubated. She was watched in the ICU for 24-48 hours after extubation and then transferred to the floor. She has continued to improve with the antibiotics and her chest x-ray has cleared up well. She is asymptomatic and is back to baseline. She is no longer a threat to herself or anyone else. She is being discharged in the care of her with plans to follow-up at [facility] for formal psychiatric evaluation. She was seen in consultation by Dr. Pendleton for her pneumonia and respiratory failure. The case was discussed with him and his nurse practitioner prior to discharge. The patient will be sent home on Levaquin and penicillin antibiotics for the next week. I also gave her prescription for albuterol. She will need a formal evaluation by pulmonary for suspected underlying history of COPD related to her chronic tobacco use. Patient received smoking cessation counseling for 10 minutes prior to discharge. She reports that she is not planning to smoke again since she has not smoked in 6 days since her admission. I filled out [facility] paperwork for her regarding this hospitalization. Her home medications were reviewed and reconciled. Since she overdosed on those medications I have stopped them. She will need to follow-up with psychiatry to evaluate which medications she should be on moving forward. She is a full code. Her is at the bedside at the time of my evaluation. All of their questions were answered appropriately. - Time spent with patient Time with patient DS: Greater than 30 minutes (Total discharge time for this patient, including mejj-ec-lory time, clinical documentation, medication reconciliation, and discharge planning was 41 minutes.) Diagnosis - Discharge Diagnosis (1) Left lower lobe pneumonia Status: Acute (2) Depression with suicidal ideation Status: Acute (3) Respiratory failure Status: Resolved Discharge Plan - Discharge Data Disposition: Disch/Xfer to Psych Hos Condition at Discharge: Stable Discharge Diet: advance to your usual diet Activity: resume usual activities as tolerated Hygiene: no restrictions Weight Bearing at Discharge: full weight bearing Driving: no restrictions Contact your physician if you experience:: fever over 101, Shortness of breath - Discharge Medications New Penicillin Vk Tab 500 mg PO Q8HR #21 tablet Albuterol Inhaler [Proventil Inhaler] 2 puff INH Q6HR #1 inhaler Levofloxacin Tab [Levaquin Tab] 500 mg PO DAILY #7 tablet Discontinued Zolpidem Tartrate [Ambien] 10 mg PO BEDTIME PRN PRN Reason: Sleep Sertraline [Zoloft] 25 mg PO DAILY Pramipexole [Mirapex] 0.25 mg PO BEDTIME - Follow Up or Referral - Forms/Instructions Additional Discharge Instructions: Follow-up with primary care physician next available appt Exam - Constitutional Vitals: Period Temp Pulse Resp BP Sys/Lau Pulse Ox Last 24 Hr 97.3 F-98.6 F 66-78 16-20 113-138/71-77 92-98 Discharge Results Procedures and tests throughout hospitalization: Pending Orders 01/12/17 16:25 Fungal Culture w/ Prep Stat Labs on day of discharge: Labs from last 24 hours 01/17/17 01/17/17 01/17/17 06:49 06:49 06:49 WBC 8.2 RBC 4.66 Hgb 14.3 D Hct 40.9 MCV 87.8 MCH 31 MCHC 35.0 RDW 12.4 Plt Count 227 D MPV 11.1 Neut % (Auto) 64.2 Lymph % (Auto) 22.3 [place] % (Auto) 8.6 Eos % (Auto) 3.3 Baso % (Auto) 0.5 Neut # (Auto) 5.3 Lymph # (Auto) 1.8 [place] # (Auto) 0.7 Eos # (Auto) 0.3 Baso # (Auto) 0.0 Immature Gran % 1.1 Nucleated RBC % 0.0 Immature Gran # 0.09 Nucleated RBCs # 0.00 Sodium 143 Potassium 4.2 Chloride 110 H Carbon Dioxide 29 Anion Gap 8.2 BUN 12 Creatinine 0.60 GFR Calculation 109 BUN/Creatinine Ratio 20.00 Glucose 99 Calculated Osmolality 284.0 Calcium 9.1 Magnesium 2.1 B-Natriuretic Peptide 66 DS: Provider Date of admission: 01/11/17 23:45 Primary care physician: . No PCP Attending physician on admission: Sean Cotton MD Consults: 01/12/17 00:53 Consult to Physician [CONS] Routine Comment: vent managment Consulting Provider: Macho Kang Consult to Specialist Group: Pulmonology Person Notified: left voicemail Date Notified: 01/12/17 Time Notified: 08:45 01/12/17 15:44 Consult to Dietitian [CONS] Routine Reason for Dietitian: TF-Initiate/Manage 01/15/17 09:29 Consult to Case Mgmt/Social Srvs [CONS] Routine Reason for Case Mgmt/Social Srvs: Psychiatric Management Consult Comment: When Medically Stable Discharging clinician: Gunnar Rodriguez MD Expected date of discharge: 01/17/17
[2017-01-17] MEDS: LEVOFLOXACIN INJ 500 MG in PREMIX 1 EACH IV SCH (11:08)
[2017-01-17 11:13] VITALS: BP 121/68
--- NOTE | 2017-01-17 11:54 | Pulmonology Progress Note ---
Pulmonary - PN: Subj Interval history: Chris Zavala, [facility] acting as scribe for Dr. Macho Kang This is a 61-year-old white female who we saw in pulmonary consultation on 2016. At that time, our impressions were: 1. Intentional overdose of opioids. 2. Acute respiratory failure related to #1 3. Small left pleural effusion and slight increase right lower lung markings. Suspect a mild degree of aspiration. 4. Hypoxemia. Note that this was present when the patient was on a ventilator in 2009. 5. Tobacco abuse. Reportedly 2 packs of cigarettes per day. Most likely has underlying COPD. 6. Elevated TSH with normal free T4. 7. See past history 01/15/2017. This patient was extubated on 01/13/2017. Her fiberoptic bronchoscopy sputum is from 01/12/2017 are growing gram-positive cocci which is yet to be identified. Sensitivities are not available. ABGs on 40% oxygen showed pH 7.43, PCO2 52.6, PO2 of 81 and a bicarb of 34.1. Sodium is 143. Potassium 3.4. Creatinine 0.50 with a BUN of 11. Natruretic peptide is 262. Today's chest x-ray shows the previously noted pleural effusion has resolved. There is a residual infiltrate in the posterior lateral segment of the right lower lung Patient's was present today and I discussed the case with him. Patient' s nurse was present and Chris Zvaala nurse practitioner was present. 01/16/2017. Today's chest x-ray shows some small bibasilar infiltrates. Bronchoscopy specimens which were submitted on 01/12/2017 are growing gram- positive cocci. ID and sensitivities are not yet available. ABGs on FiO2 of 44 % show pH 7.437, PCO2 45.5 PO2 of 53.7 a bicarb of 29.2. Natruretic peptide is 173. We will repeat chest x-ray tomorrow. The patient sitting in bed and breathing comfortably in her chest is clear with prolonged. 01/17/2017. The patient was seen today along with multiple family members. Her chest x-ray continues to improve. It is our understanding that she has been accepted to inpatient psychiatric care at [facility] in [place], [place]. At discharge, we would recommend Pen-Vee K and Levaquin for another week secondary to Streptococcus pneumoniae seen on bronchoscopy specimens. This was discussed with Dr. Rodriguez. We have coordinated our care. Medications have been reviewed. Labs been reviewed. White count is 8200 with a normal differential; H&H 14.3/ 40.9; platelet count 227,000; creatinine 0.60, BUN 12, electrolytes are normal; BNP 66 Exam (Progress Note) - Constitutional Vitals: Period Temp Pulse Resp BP Sys/Lau Pulse Ox Last 24 Hr 97.3 F-98.2 F 66-78 16-20 113-132/68-77 93-98 Exam: Chest is hyperinflated with prolonged expiration but no appreciable wheeze Heart no gallop Abdomen is nontender and nondistended; bowel sounds are positive 4 Lower extremities with nothing to suggest acute deep venous thrombophlebitis Psychiatric oriented 3 Neurologic long-term motor function is intact Plan: As discussed with Dr. Rodriguez, we agree with plans to transfer to inpatient psychiatric care. Recommendations for Pen-Vee K and Levaquin for 1 week for Streptococcus pneumoniae. We will sign off. Please reconsult as needed. Results - Labs CBC & BMP: 01/17/17 06:49 01/17/17 06:49 Specialty Discharge - Follow Up or Referrals Follow up with: Macho Kang MD [Physician] - (call if needed)
== END 2017-01-17 11:55 | disposition home or self-care (01) | DRG 987 ==
LOC: N.CC 23:45 → SUATTDRO 23:45 → N.3E 01-16 00:24
PROVIDERS: ADMIT Internal Medicine; ATTEND Family Medicine